=== PATIENT | female | born 1965 | race Caucasian/White ===

== ENCOUNTER 2017-11-08 16:37 | Emergency (ER) | payer MEDICARE, MEDICAID ==
[~2017-11-08] VITALS: Ht 162.6 cm; Wt 94.0 kg
[~2017-11-08 16:37] MED LIST: CETI-1 PO; DIAZ5TAB PO; HYDR-3964 PO; IBUP-1984 PO; LAMO200T2 PO; MECL25TA3 PO; NITR100C6 PO; ONDA8TAB13 PO; PHEN-887 PO; ZOLP5TAB8 PO
[2017-11-08 16:46] VITALS: BP 134/86
[2017-11-08] MEDS ORDERED: BENZ-16 PO (16:52)
[2017-11-08] MEDS ORDERED: AZIT250T PO (16:52)
== END 2017-11-08 16:58 | disposition home or self-care (01) ==
LOC: ER 16:38
DX: J06.9 Acute upper respiratory infection, unspecified (principal); K21.9 Gastro-esophageal reflux disease without esophagitis; G89.29 Other chronic pain; Z90.49 Acquired absence of other specified parts of digestive tract; Z88.8 Allergy status to other drugs, medicaments and biological substances; Z79.899 Other long term (current) drug therapy
CPT/HCPCS: 99283

== ENCOUNTER 2018-01-16 21:47 | Emergency (ER) | payer MEDICARE, MEDICAID ==
[~2018-01-16] VITALS: Ht 162.6 cm; Wt 94.6 kg
[~2018-01-16 21:47] MED LIST changes: +AZIT250T PO
[2018-01-17] MEDS ORDERED: triamcinolone acetonide 40mg/ml inj IM ONE (00:15)
[2018-01-17 00:25] VITALS: BP 123/65
== END 2018-01-17 00:27 | disposition home or self-care (01) ==
LOC: ER 21:48
DX: J30.2 Other seasonal allergic rhinitis (principal); K21.9 Gastro-esophageal reflux disease without esophagitis; G89.29 Other chronic pain; M19.90 Unspecified osteoarthritis, unspecified site; Z87.442 Personal history of urinary calculi; Z90.49 Acquired absence of other specified parts of digestive tract; Z90.710 Acquired absence of both cervix and uterus; Z88.8 Allergy status to other drugs, medicaments and biological substances; Z79.899 Other long term (current) drug therapy
CPT/HCPCS: 96372; 99283; J3301

== ENCOUNTER 2020-06-21 17:19 | Emergency (ER) | payer MEDICARE, MEDICAID ==
[~2020-06-21] VITALS: Ht 162.6 cm; Wt 99.5 kg
[2020-06-21 17:31] VITALS: BP 155/95
[2020-06-21] MEDS ORDERED: CEPH-572 PO (18:02)
[2020-06-21] MEDS ORDERED: LIDOcaine 1% 30ml preserv. free vial ONE (18:45)
[2020-06-21] MEDS ORDERED: cephalexin 250mg capsule PO ONE (18:45)
== END 2020-06-21 19:02 | disposition home or self-care (01) ==
LOC: ER 17:20
DX: L03.011 Cellulitis of right finger (principal); K21.9 Gastro-esophageal reflux disease without esophagitis; G89.29 Other chronic pain; F31.9 Bipolar disorder, unspecified; Z90.49 Acquired absence of other specified parts of digestive tract; Z90.710 Acquired absence of both cervix and uterus; Z98.890 Other specified postprocedural states; Z88.8 Allergy status to other drugs, medicaments and biological substances; Z79.2 Long term (current) use of antibiotics; Z79.899 Other long term (current) drug therapy
CPT/HCPCS: 11765; 99284; J2001; 99283

== ENCOUNTER 2022-02-25 15:58 | Emergency (ER) | payer MEDICARE, MEDICAID ==
[~2022-02-25] VITALS: Ht 162.6 cm; Wt 95.5 kg
[2022-02-25] MEDS ORDERED: ondansetron/PF 4mg/2ml inj IV ONE (16:15)
[2022-02-25] MEDS ORDERED: normal saline 1000ML IV soln IVB ONE (16:15)
[2022-02-25] MEDS ORDERED: morphine 4 MG/ML inj SYRINge IV ONE ×2 (16:15→18:10)
[2022-02-25 16:35] LABS: BASOPHILS % (AUTO) 0.2 % (0-1); EOSINOPHILS % (AUTO) 0 % (0-6); HEMATOCRIT 42.2 % (35.0-45.0); HEMOGLOBIN 14.5 g/dl (12.0-16.0); LYMPHOCYTES # (AUTO) 1.3 X10'3 (1.1-4.8); LYMPHOCYTES % (AUTO) 23.6 % (21-51); MEAN CORPUSCULAR HEMOGLOBIN 29.8 PG (27.0-31.0); MEAN CORPUSCULAR HGB CONC 34.4 g/dL (33.0-36.5); MEAN CORPUSCULAR VOLUME 86.8 FL (78-98); MONOCYTES # (AUTO) 0.4 X10'3 (0-0.9); NEUTROPHILS # (AUTO) 3.9 X10'3 (1.8-7.7); NEUTROPHILS % (AUTO) 69.2 % (42-75); PLATELET COUNT 200 X10'3 (140-440); RED BLOOD COUNT 4.86 X10'6 (4.20-5.60); RED CELL DISTRIBUTION WIDTH 13.2 % (11.5-14.5); WHITE BLOOD COUNT 5.7 X10'3 (4.5-11.0)
[2022-02-25 16:45] LABS: ALANINE AMINOTRANSFERASE 19 U/L (12-78); ALBUMIN/GLOBULIN RATIO 1.1 (1.1-1.5); ALKALINE PHOSPHATASE 92 IU/L (46-116); ANION GAP 9 (8-16); ASPARTATE AMINO TRANSFERASE 11 U/L (10-37); BILIRUBIN,TOTAL 0.4 MG/DL (0.1-1.0); BLOOD UREA NITROGEN 17 MG/DL (7-18); BUN/CREATININE RATIO 21.5 (6.6-38.0); CALCIUM 8.8 MG/DL (8.5-10.1); CHLORIDE 104 MMOL/L (99-107); CREATININE 0.79 MG/DL (0.40-0.90); GLUCOSE 99 MG/DL (70-104); LIPASE 171 U/L (73-393); POTASSIUM 3.7 MMOL/L (3.5-5.1); SODIUM 141 MMOL/L (135-145); TOTAL CARBON DIOXIDE 27.9 MMOL/L (24-32); TOTAL PROTEIN 7.7 G/DL (6.4-8.2); eGFR 76 ML/MIN
[2022-02-25 16:47] LABS: CLARITY,URINE CLEAR (Clear); COLOR,URINE YELLOW (Yellow); GLUCOSE, URINE NEGATIVE (Neg); KETONES,URINE TRACE mg/dl (Neg); LEUKOCYTE ESTERASE ,URINE NEGATIVE (Neg); NITRITES, URINE NEGATIVE (Neg); OCCULT BLOOD,URINE LARGE (Neg); PH,URINE 6.5 (4.8-8.0); PROTEIN,URINE NEGATIVE (Neg); UROBILINOGEN,URINE 0.2 E.U/dL (0.2-1.0)
[2022-02-25 16:56] LABS: UA COLLECTION TYPE CLN CATCH MIDSTREAM
[2022-02-25 16:59] LABS: BACTERIA,URINE FEW /HPF (Neg); MUCUS STRANDS FEW /LPF (Neg); RBC,URINE 20-50 /HPF (0-2); SQUAMOUS EPITHELIAL CELL,UR MODERATE /LPF (FEW); WBC,URINE 0-4 /HPF (0-4)
[2022-02-25] MEDS ORDERED: ketorolac tromethamine 15mg/ml inj. IV ONE (18:10)
[2022-02-25] MEDS ORDERED: FLO0.4C PO (19:13)
[2022-02-25] MEDS ORDERED: IBUP-1985 PO (19:13)
[2022-02-25 19:31] VITALS: BP 118/78
== END 2022-02-25 19:34 | disposition home or self-care (01) ==
LOC: ER 15:58
DX: N20.1 Calculus of ureter (principal); R10.84 Generalized abdominal pain; R11.2 Nausea with vomiting, unspecified; K21.9 Gastro-esophageal reflux disease without esophagitis; G89.29 Other chronic pain; F31.9 Bipolar disorder, unspecified; Z87.440 Personal history of urinary (tract) infections; Z87.442 Personal history of urinary calculi; Z90.49 Acquired absence of other specified parts of digestive tract; Z90.710 Acquired absence of both cervix and uterus; Z98.51 Tubal ligation status; Z98.890 Other specified postprocedural states; Z88.8 Allergy status to other drugs, medicaments and biological substances; Z79.2 Long term (current) use of antibiotics; Z79.899 Other long term (current) drug therapy
CPT/HCPCS: 36415; 74176; 80053; 81001; 83690; 85025; 96374; 96375; 96376; 99284; J1885; J2270; J2405; J7030

== ENCOUNTER 2022-06-25 09:04 | Emergency (ER) | payer MEDICARE, MEDICAID ==
[~2022-06-25] VITALS: Ht 162.6 cm; Wt 95.0 kg
[~2022-06-25 09:04] MED LIST changes: +IBUP-1985 PO
[2022-06-25 09:10] VITALS: BP 160/85
== END 2022-06-25 09:41 | disposition left against medical advice (07) ==
LOC: ER 09:05
DX: R05.9 Cough, unspecified (principal); K21.9 Gastro-esophageal reflux disease without esophagitis; G89.29 Other chronic pain; Z88.8 Allergy status to other drugs, medicaments and biological substances; Z90.49 Acquired absence of other specified parts of digestive tract; Z90.710 Acquired absence of both cervix and uterus; Z98.51 Tubal ligation status
CPT/HCPCS: 99281

== ENCOUNTER 2022-07-26 00:21 | Emergency (ER) | payer MEDICARE, MEDICAID ==
[~2022-07-26] VITALS: Ht 162.6 cm; Wt 100.0 kg
[2022-07-26] MEDS ORDERED: acetaminophen 325mg tablet PO STA (02:02)
[2022-07-26] MEDS ORDERED: ibuprofen tablet 400 MG TABLET PO ONE (02:05)
[2022-07-26 03:02] LABS: CLARITY,URINE SLIGHTLY CLOUDY (Clear); COLOR,URINE YELLOW (Yellow); GLUCOSE, URINE NEGATIVE (Neg); KETONES,URINE TRACE mg/dl (Neg); LEUKOCYTE ESTERASE ,URINE NEGATIVE (Neg); NITRITES, URINE NEGATIVE (Neg); OCCULT BLOOD,URINE NEGATIVE (Neg); PH,URINE 5.5 (4.8-8.0); PROTEIN,URINE TRACE mg/dl (Neg); UROBILINOGEN,URINE 0.2 E.U/dL (0.2-1.0)
[2022-07-26 03:06] LABS: BASOPHILS % (AUTO) 0.2 % (0-1); EOSINOPHILS % (AUTO) 0 % (0-6); HEMATOCRIT 41.3 % (35.0-45.0); HEMOGLOBIN 14.5 g/dl (12.0-16.0); LYMPHOCYTES % (AUTO) 21.7 % (21-51); MEAN CORPUSCULAR HEMOGLOBIN 31.6 PG (27.0-31.0); MEAN CORPUSCULAR VOLUME 90.2 FL (78-98); MONOCYTES # (AUTO) 0.6 X10'3 (0-0.9); MONOCYTES % (AUTO) 12.2 % (2-12); NEUTROPHILS # (AUTO) 3.1 X10'3 (1.8-7.7); NEUTROPHILS % (AUTO) 65.9 % (42-75); PLATELET COUNT 169 X10'3 (140-440); RED BLOOD COUNT 4.58 X10'6 (4.20-5.60); RED CELL DISTRIBUTION WIDTH 13.4 % (11.5-14.5); WHITE BLOOD COUNT 4.7 X10'3 (4.5-11.0)
[2022-07-26 03:15] LABS: UA COLLECTION TYPE CLN CATCH MIDSTREAM
[2022-07-26 03:19] LABS: ALANINE AMINOTRANSFERASE 34 U/L (12-78); ALBUMIN 4.1 G/DL (3.4-5.0); ALBUMIN/GLOBULIN RATIO 1.1 (1.1-1.5); ALKALINE PHOSPHATASE 87 IU/L (46-116); ANION GAP 10 (8-16); ASPARTATE AMINO TRANSFERASE 27 U/L (10-37); BILIRUBIN,TOTAL 0.5 MG/DL (0.1-1.0); BLOOD UREA NITROGEN 15 MG/DL (7-18); BUN/CREATININE RATIO 18.3 (6.6-38.0); CALCIUM 9.1 MG/DL (8.5-10.1); CHLORIDE 100 MMOL/L (99-107); CREATININE 0.82 MG/DL (0.40-0.90); GLUCOSE 120 MG/DL (70-104); POTASSIUM 3.9 MMOL/L (3.5-5.1); SODIUM 135 MMOL/L (135-145); TOTAL PROTEIN 7.8 G/DL (6.4-8.2); eGFR 72 ML/MIN
[2022-07-26 03:20] LABS: BACTERIA,URINE 1+ /HPF (Neg); MUCUS STRANDS MODERATE /LPF (Neg); SQUAMOUS EPITHELIAL CELL,UR MANY /LPF (FEW)
[2022-07-26 03:21] LABS: WBC,URINE 0-4 /HPF (0-4)
[2022-07-26 04:27] VITALS: BP 130/85
== END 2022-07-26 04:00 | disposition home or self-care (01) ==
LOC: ER 00:21
DX: J10.1 Influenza due to other identified influenza virus with other respiratory manifestations (principal); Z20.822 Contact with and (suspected) exposure to COVID-19; R11.2 Nausea with vomiting, unspecified; K21.9 Gastro-esophageal reflux disease without esophagitis; G89.29 Other chronic pain; M19.90 Unspecified osteoarthritis, unspecified site; Z88.8 Allergy status to other drugs, medicaments and biological substances; Z90.49 Acquired absence of other specified parts of digestive tract; Z90.710 Acquired absence of both cervix and uterus; Z98.51 Tubal ligation status
CPT/HCPCS: 36415; 71045; 80053; 81001; 85025; 86635; 87040; 87502; 87503; 87635; 99284; C9803

== ENCOUNTER 2022-07-29 16:34 | Emergency (ER) | payer MEDICARE, MEDICAID ==
[~2022-07-29] VITALS: Ht 162.6 cm; Wt 97.0 kg
[2022-07-29] MEDS ORDERED: levoFLOXACIN-Levaquin 500mg/D5 100 ML IV ONE (23:10)
[2022-07-29] MEDS ORDERED: LEVO-65 PO (23:11)
[2022-07-30 00:17] VITALS: BP 146/95
== END 2022-07-30 00:18 | disposition home or self-care (01) ==
LOC: ER 16:35
DX: R05.9 Cough, unspecified (principal); K21.9 Gastro-esophageal reflux disease without esophagitis; M19.90 Unspecified osteoarthritis, unspecified site; Z88.8 Allergy status to other drugs, medicaments and biological substances; Z90.49 Acquired absence of other specified parts of digestive tract; Z90.710 Acquired absence of both cervix and uterus; Z98.51 Tubal ligation status
CPT/HCPCS: 96365; 99284; J1956

== ENCOUNTER 2022-12-14 09:56 | Emergency (ER) | payer MEDICARE, MEDICAID ==
[~2022-12-14] VITALS: Ht 162.6 cm; Wt 97.0 kg
[2022-12-14] MEDS ORDERED: tamsulosin 0.4mg capsule PO STA (10:36)
[2022-12-14 10:40] LABS: BASOPHILS % (AUTO) 0.1 % (0-1); EOSINOPHILS % (AUTO) 0.1 % (0-6); HEMATOCRIT 41.3 % (35.0-45.0); HEMOGLOBIN 14.4 g/dl (12.0-16.0); LYMPHOCYTES # (AUTO) 1.2 X10'3 (1.1-4.8); LYMPHOCYTES % (AUTO) 26.1 % (21-51); MEAN CORPUSCULAR HEMOGLOBIN 31.1 PG (27.0-31.0); MEAN CORPUSCULAR VOLUME 89.1 FL (78-98); MEAN PLATELET VOLUME 9.5 FL (7.4-10.4); MONOCYTES # (AUTO) 0.4 X10'3 (0-0.9); MONOCYTES % (AUTO) 7.8 % (2-12); NEUTROPHILS % (AUTO) 65.9 % (42-75); PLATELET COUNT 195 X10'3 (140-440); RED BLOOD COUNT 4.64 X10'6 (4.20-5.60); RED CELL DISTRIBUTION WIDTH 12.8 % (11.5-14.5); WHITE BLOOD COUNT 4.6 X10'3 (4.5-11.0)
[2022-12-14] MEDS ORDERED: normal saline 1000ML IV soln IVB ONE (10:40)
[2022-12-14] MEDS ORDERED: ketorolac trometh. 30mg/ml inj. IV ONE (10:40)
[2022-12-14 10:41] LABS: CLARITY,URINE CLOUDY (Clear); COLOR,URINE YELLOW (Yellow); GLUCOSE, URINE NEGATIVE (Neg); KETONES,URINE NEGATIVE (Neg); LEUKOCYTE ESTERASE ,URINE NEGATIVE (Neg); NITRITES, URINE NEGATIVE (Neg); OCCULT BLOOD,URINE TRACE-INTACT (Neg); PH,URINE 5.5 (4.8-8.0); PROTEIN,URINE NEGATIVE (Neg); UROBILINOGEN,URINE 0.2 E.U/dL (0.2-1.0)
[2022-12-14 10:42] LABS: UA COLLECTION TYPE CLN CATCH MIDSTREAM; URINE HCG NEGATIVE (NEG)
[2022-12-14 10:52] LABS: MUCUS STRANDS MANY /LPF (Neg); SQUAMOUS EPITHELIAL CELL,UR MANY /LPF (FEW)
[2022-12-14 10:53] LABS: BACTERIA,URINE 2+ /HPF (Neg); RBC,URINE 0-2 /HPF (0-2); TRANSITIONAL EPI CELLS,URINE FEW /HPF; WBC,URINE 0-4 /HPF (0-4)
[2022-12-14 10:54] LABS: ALANINE AMINOTRANSFERASE 23 U/L (12-78); ALBUMIN 3.8 G/DL (3.4-5.0); ALBUMIN/GLOBULIN RATIO 1.1 (1.1-1.5); ALKALINE PHOSPHATASE 85 IU/L (46-116); ANION GAP 6 (8-16); ASPARTATE AMINO TRANSFERASE 17 U/L (10-37); BILIRUBIN,TOTAL 0.6 MG/DL (0.1-1.0); BLOOD UREA NITROGEN 20 MG/DL (7-18); BUN/CREATININE RATIO 27.4 (10.0-20.0); CHLORIDE 101 MMOL/L (99-107); CREATININE 0.73 MG/DL (0.40-0.90); GLUCOSE 132 MG/DL (70-104); LIPASE 89 U/L (73-393); POTASSIUM 4.1 MMOL/L (3.5-5.1); SODIUM 136 MMOL/L (135-145); TOTAL CARBON DIOXIDE 28.8 MMOL/L (24-32); TOTAL PROTEIN 7.3 G/DL (6.4-8.2); eGFR 83 ML/MIN
[2022-12-14 11:12] LABS: CALCIUM 9.4 MG/DL (8.5-10.1)
[2022-12-14 12:29] VITALS: BP 119/72
== END 2022-12-14 13:36 | disposition home or self-care (01) ==
LOC: ER 09:56
DX: N23 Unspecified renal colic (principal); F31.9 Bipolar disorder, unspecified; K21.9 Gastro-esophageal reflux disease without esophagitis; G89.29 Other chronic pain; M54.9 Dorsalgia, unspecified; F17.200 Nicotine dependence, unspecified, uncomplicated; Z90.49 Acquired absence of other specified parts of digestive tract; Z88.8 Allergy status to other drugs, medicaments and biological substances; Z79.899 Other long term (current) drug therapy; Z79.1 Long term (current) use of non-steroidal anti-inflammatories (NSAID); Z79.2 Long term (current) use of antibiotics
CPT/HCPCS: 36415; 74176; 80053; 81001; 81025; 83690; 85025; 96374; 99285; J1885; J7030

== ENCOUNTER 2023-04-07 14:43 | Emergency (ER) | payer MEDICARE, MEDICAID ==
[~2023-04-07] VITALS: Ht 165.1 cm; Wt 99.4 kg
[2023-04-07 14:59] VITALS: BP 143/89; PULSE 74; RESP 16; TEMP 98.1; O2SAT 98
[2023-04-07 15:40] LABS: CLARITY,URINE CLOUDY (Clear); COLOR,URINE YELLOW (Yellow); GLUCOSE, URINE NEGATIVE (Neg); KETONES,URINE NEGATIVE (Neg); LEUKOCYTE ESTERASE ,URINE NEGATIVE (Neg); NITRITES, URINE POSITIVE (Neg); OCCULT BLOOD,URINE TRACE-INTACT (Neg); PH,URINE 5.5 (4.8-8.0); PROTEIN,URINE NEGATIVE (Neg)
[2023-04-07 15:47] LABS: UA COLLECTION TYPE CLN CATCH MIDSTREAM
[2023-04-07 15:48] LABS: SQUAMOUS EPITHELIAL CELL,UR MODERATE /LPF (FEW)
[2023-04-07 15:49] LABS: BACTERIA,URINE 3+ /HPF (Neg); MUCUS STRANDS FEW /LPF (Neg); RBC,URINE 0-2 /HPF (0-2)
[2023-04-07] MEDS ORDERED: AMOX-117 PO (15:50)
== END 2023-04-07 16:07 | disposition home or self-care (01) ==
LOC: ER 14:44
DX: N39.0 Urinary tract infection, site not specified (principal); K21.9 Gastro-esophageal reflux disease without esophagitis; F31.9 Bipolar disorder, unspecified; Z88.8 Allergy status to other drugs, medicaments and biological substances; Z91.09 Other allergy status, other than to drugs and biological substances; Z79.2 Long term (current) use of antibiotics; Z79.899 Other long term (current) drug therapy; Z90.49 Acquired absence of other specified parts of digestive tract; Z90.710 Acquired absence of both cervix and uterus
CPT/HCPCS: 81001; 87077; 87088; 87186; 99283

== ENCOUNTER 2023-08-29 15:43 | Emergency (ER) | payer MEDICARE, MEDICAID ==
[~2023-08-29] VITALS: Ht 162.6 cm; Wt 100.2 kg
[2023-08-29 16:31] LABS: BILIRUBIN,URINE SMALL (Neg); CLARITY,URINE CLOUDY (Clear); COLOR,URINE BROWN (Yellow); GLUCOSE, URINE NEGATIVE (Neg); KETONES,URINE TRACE mg/dl (Neg); LEUKOCYTE ESTERASE ,URINE NEGATIVE (Neg); NITRITES, URINE POSITIVE (Neg); OCCULT BLOOD,URINE LARGE (Neg); PH,URINE 5.5 (4.8-8.0); PROTEIN,URINE 100 mg/dl (Neg)
[2023-08-29 16:51] LABS: UA COLLECTION TYPE CLN CATCH MIDSTREAM
[2023-08-29 16:56] LABS: RBC,URINE TNTC /HPF (0-2)
[2023-08-29 17:01] LABS: BACTERIA,URINE 4+ /HPF (Neg)
[2023-08-29 17:06] LABS: MUCUS STRANDS FEW /LPF (Neg)
[2023-08-29 17:08] LABS: WBC,URINE 30-50 /HPF (0-4)
[2023-08-29 17:10] LABS: TRANSITIONAL EPI CELLS,URINE FEW /HPF
[2023-08-29 17:16] LABS: SQUAMOUS EPITHELIAL CELL,UR MANY /LPF (FEW)
[2023-08-29 18:59] VITALS: TEMP 98
[2023-08-29] MEDS ORDERED: ondansetron/PF 4mg/2ml inj IV ONE (19:10)
[2023-08-29] MEDS ORDERED: ketorolac trometh. 30mg/ml inj. IV ONE (19:10)
[2023-08-29] MEDS ORDERED: morphine 4 MG/ML inj SYRINge IV ONE (19:10)
[2023-08-29] MEDS ORDERED: normal saline 1000ML IV soln IVB ONE (19:10)
[2023-08-29 19:31] LABS: BASOPHILS % (AUTO) 0.2 % (0-1); EOSINOPHILS % (AUTO) 0 % (0-6); HEMATOCRIT 42.6 % (35.0-45.0); HEMOGLOBIN 14.8 g/dl (12.0-16.0); LYMPHOCYTES # (AUTO) 1.2 X10'3 (1.1-4.8); MEAN CORPUSCULAR HEMOGLOBIN 30.8 PG (27.0-31.0); MEAN CORPUSCULAR HGB CONC 34.8 g/dL (33.0-36.5); MEAN CORPUSCULAR VOLUME 88.3 FL (78-98); MEAN PLATELET VOLUME 9.3 FL (7.4-10.4); MONOCYTES # (AUTO) 0.5 X10'3 (0-0.9); MONOCYTES % (AUTO) 6.9 % (2-12); NEUTROPHILS # (AUTO) 5.1 X10'3 (1.8-7.7); NEUTROPHILS % (AUTO) 74.9 % (42-75); PLATELET COUNT 202 X10'3 (140-440); RED BLOOD COUNT 4.82 X10'6 (4.20-5.60); RED CELL DISTRIBUTION WIDTH 13.5 % (11.5-14.5); WHITE BLOOD COUNT 6.8 X10'3 (4.5-11.0)
[2023-08-29 19:32] LABS: URINE HCG NEGATIVE (NEG)
[2023-08-29 19:39] LABS: ALANINE AMINOTRANSFERASE 28 U/L (12-78); ALBUMIN/GLOBULIN RATIO 1.1 (1.1-1.5); ALKALINE PHOSPHATASE 102 IU/L (46-116); ANION GAP 8 (8-16); ASPARTATE AMINO TRANSFERASE 14 U/L (10-37); BILIRUBIN,TOTAL 0.6 MG/DL (0.1-1.0); BLOOD UREA NITROGEN 14 MG/DL (7-18); BUN/CREATININE RATIO 19.4 (10.0-20.0); CALCIUM 9.2 MG/DL (8.5-10.1); CHLORIDE 97 MMOL/L (99-107); CREATININE 0.72 MG/DL (0.40-0.90); GLUCOSE 132 MG/DL (70-104); SODIUM 132 MMOL/L (135-145); TOTAL CARBON DIOXIDE 27.5 MMOL/L (24-32); TOTAL PROTEIN 7.8 G/DL (6.4-8.2); eCRCL 75 ML/MIN; eGFR 84 ML/MIN
[2023-08-29] MEDS ORDERED: CefTRIAXone/D5W-Rocephin 1gm 50 ML IV ONE (20:40)
[2023-08-29] MEDS ORDERED: FLO0.4C PO (21:06)
[2023-08-29] MEDS ORDERED: CEPH-585 PO (21:06)
[2023-08-29 21:30] VITALS: BP 164/79; PULSE 67; RESP 15; O2SAT 99
== END 2023-08-29 21:46 | disposition home or self-care (01) ==
LOC: ER 15:44
DX: N13.2 Hydronephrosis with renal and ureteral calculous obstruction (principal); N39.0 Urinary tract infection, site not specified; R31.9 Hematuria, unspecified; G89.29 Other chronic pain; Z87.442 Personal history of urinary calculi; Z87.440 Personal history of urinary (tract) infections; Z90.710 Acquired absence of both cervix and uterus; Z90.49 Acquired absence of other specified parts of digestive tract; Z98.51 Tubal ligation status; Z79.899 Other long term (current) drug therapy; Z79.2 Long term (current) use of antibiotics; Z88.8 Allergy status to other drugs, medicaments and biological substances
CPT/HCPCS: 36415; 74176; 80053; 81001; 81025; 85025; 96365; 96375; 99285; J0696; J1885; J2270; J2405; J7030

== ENCOUNTER 2023-09-13 20:10 | Emergency (ER) | payer MEDICARE, MEDICAID ==
[~2023-09-13] VITALS: Ht 162.6 cm; Wt 100.0 kg
[2023-09-13 20:30] VITALS: TEMP 98.7
[2023-09-13] MEDS ORDERED: ondansetron 4mg rapidly disintigrating tab PO ONE (20:40)
[2023-09-13] MEDS ORDERED: ketorolac trometh inj. 60 MG/2 ML VIAL IM ONE (20:40)
[2023-09-13 21:04] LABS: BASOPHILS % (AUTO) 0.2 % (0-1); EOSINOPHILS % (AUTO) 0 % (0-6); HEMATOCRIT 41.8 % (35.0-45.0); HEMOGLOBIN 14.8 g/dl (12.0-16.0); LYMPHOCYTES # (AUTO) 1.4 X10'3 (1.1-4.8); MEAN CORPUSCULAR HEMOGLOBIN 30.9 PG (27.0-31.0); MEAN CORPUSCULAR HGB CONC 35.4 g/dL (33.0-36.5); MEAN CORPUSCULAR VOLUME 87.4 FL (78-98); MEAN PLATELET VOLUME 8.9 FL (7.4-10.4); MONOCYTES # (AUTO) 0.4 X10'3 (0-0.9); MONOCYTES % (AUTO) 8.2 % (2-12); NEUTROPHILS # (AUTO) 3.1 X10'3 (1.8-7.7); NEUTROPHILS % (AUTO) 62.6 % (42-75); PLATELET COUNT 215 X10'3 (140-440); RED BLOOD COUNT 4.78 X10'6 (4.20-5.60); RED CELL DISTRIBUTION WIDTH 13.2 % (11.5-14.5)
[2023-09-13 21:06] LABS: URINE HCG NEGATIVE (NEG)
[2023-09-13 21:09] LABS: BILIRUBIN,URINE NEGATIVE (Neg); CLARITY,URINE SLIGHTLY CLOUDY (Clear); COLOR,URINE YELLOW (Yellow); GLUCOSE, URINE >=1000 mg/dl (Neg); KETONES,URINE TRACE mg/dl (Neg); LEUKOCYTE ESTERASE ,URINE NEGATIVE (Neg); NITRITES, URINE NEGATIVE (Neg); OCCULT BLOOD,URINE TRACE-INTACT (Neg); PROTEIN,URINE NEGATIVE (Neg); UROBILINOGEN,URINE 0.2 E.U/dL (0.2-1.0)
[2023-09-13 21:12] LABS: UA COLLECTION TYPE CLN CATCH MIDSTREAM
[2023-09-13 21:13] LABS: ALANINE AMINOTRANSFERASE 26 U/L (12-78); ALBUMIN 3.9 G/DL (3.4-5.0); ALKALINE PHOSPHATASE 95 IU/L (46-116); ANION GAP 8 (8-16); ASPARTATE AMINO TRANSFERASE 16 U/L (10-37); BILIRUBIN,TOTAL 0.5 MG/DL (0.1-1.0); BLOOD UREA NITROGEN 13 MG/DL (7-18); BUN/CREATININE RATIO 16.5 (10.0-20.0); CALCIUM 9.6 MG/DL (8.5-10.1); CHLORIDE 99 MMOL/L (99-107); CREATININE 0.79 MG/DL (0.40-0.90); GLUCOSE 166 MG/DL (70-104); LIPASE 55 U/L (16-77); SODIUM 135 MMOL/L (135-145); TOTAL CARBON DIOXIDE 28.2 MMOL/L (24-32); TOTAL PROTEIN 7.7 G/DL (6.4-8.2); eCRCL 69 ML/MIN; eGFR 75 ML/MIN
[2023-09-13 21:23] LABS: SQUAMOUS EPITHELIAL CELL,UR MANY /LPF (FEW)
[2023-09-13 21:24] LABS: MUCUS STRANDS MODERATE /LPF (Neg); WBC,URINE 0-4 /HPF (0-4)
[2023-09-13 21:25] LABS: BACTERIA,URINE 2+ /HPF (Neg)
[2023-09-14] MEDS ORDERED: FLUC150T22 PO (01:52)
[2023-09-14] MEDS ORDERED: FLO0.4C PO (01:52)
[2023-09-14 02:17] VITALS: BP 152/91; PULSE 85; RESP 18; O2SAT 98
== END 2023-09-14 02:18 | disposition home or self-care (01) ==
LOC: ER 20:10
DX: N20.0 Calculus of kidney (principal); B37.89 Other sites of candidiasis; K21.9 Gastro-esophageal reflux disease without esophagitis; G89.29 Other chronic pain; M54.9 Dorsalgia, unspecified; F31.9 Bipolar disorder, unspecified; Z88.8 Allergy status to other drugs, medicaments and biological substances; Z79.899 Other long term (current) drug therapy
CPT/HCPCS: 36415; 80053; 81001; 81025; 83690; 85025; 96372; 99283; J1885

== ENCOUNTER 2023-12-25 13:04 | Day surgery (SDC) | payer OTHER, MEDICAID ==
[2023-12-25] VITALS (8 sets, daily range): BP systolic 97–138; BP diastolic 36–88; PULSE 64–71; RESP 14–16; TEMP 97.9; O2SAT 94–97
[~2023-12-25] VITALS: Ht 162.6 cm; Wt 94.2 kg
[~2023-12-25 13:04] MED LIST changes: +ALBU2.5V7 NEB; +ASPI81TA53 PO; +ATOR40TA14 PO; -AZIT250T PO; -CETI-1 PO; +ESOM40CA PO; +FLUO20CA39 PO; -IBUP-1984 PO; +LINA5TAB4 PO; +LOSA50TA64 PO; +METF-1203 PO; +METO-395 PO; +MONT-40 PO; -NITR100C6 PO; +ROPI0.2544 PO; -ZOLP5TAB8 PO
[2023-12-25] MEDS ORDERED: diphenhydrAMINE 25mg capsule PO PRN (13:35)
[2023-12-25] MEDS ORDERED: LORazepam 0.5 MG tablet PO PRN (13:35)
[2023-12-25] MEDS ORDERED: normal saline 1,000 ML IV SCH (13:35)
[2023-12-25] MEDS ORDERED: iohexol 350MG/ML 100ml bottle IV ONE (13:56)
[2023-12-25] MEDS ORDERED: fentaNYL/PF 50MCG/1 ML 2ML syringe ONE (13:56)
[2023-12-25] MEDS ORDERED: verapamil 2.5 mg/ml inj IV ONE (13:56)
[2023-12-25] MEDS ORDERED: LIDOcaine 1% 30ml preserv. free vial ONE (13:56)
[2023-12-25] MEDS ORDERED: heparin 1,000unit/ml 10ml vial 10 ML ONE (13:56)
[2023-12-25] MEDS ORDERED: midazolam 1 mg/ML 2ml injection ONE (13:56)
[2023-12-25] MEDS ORDERED: nitroGLYCERIN 500mcg/5mL D5W 5 ML IV ONE (13:56)
[2023-12-25] MEDS ORDERED: LOSA-416 PO (13:57)
[2023-12-25] MEDS ORDERED: METF-436 PO (13:57)
[2023-12-25] MEDS ORDERED: METO-539 PO (13:57)
[2023-12-25] MEDS ORDERED: KETO-97 EACHEYE (13:57)
[2023-12-25] MEDS ORDERED: ZOLP5TAB2 PO (13:57)
[2023-12-25] MEDS ORDERED: FLO0.4C PO (13:57)
[2023-12-25] MEDS ORDERED: CETI10TA14 PO (13:57)
[2023-12-25] MEDS ORDERED: HYDR-3968 PO (13:57)
[2023-12-25] MEDS ORDERED: IBUP-1986 PO (13:57)
[2023-12-25] MEDS ORDERED: ATOR40TA14 PO (13:57)
[2023-12-25] MEDS ORDERED: CINN500C16 PO (13:57)
[2023-12-25] MEDS ORDERED: SEMA0.258 SQ (13:57)
[2023-12-25 14:06] LABS: BASOPHILS % (AUTO) 0.1 % (0-1); EOSINOPHILS % (AUTO) 0 % (0-6); HEMATOCRIT 40.4 % (35.0-45.0); HEMOGLOBIN 13.9 g/dl (12.0-16.0); LYMPHOCYTES # (AUTO) 1.3 X10'3 (1.1-4.8); LYMPHOCYTES % (AUTO) 19.4 % (21-51); MEAN CORPUSCULAR HEMOGLOBIN 30.7 PG (27.0-31.0); MEAN CORPUSCULAR HGB CONC 34.5 g/dL (33.0-36.5); MEAN CORPUSCULAR VOLUME 89.1 FL (78-98); MEAN PLATELET VOLUME 10.6 FL (7.4-10.4); MONOCYTES # (AUTO) 0.5 X10'3 (0-0.9); MONOCYTES % (AUTO) 7.6 % (2-12); NEUTROPHILS # (AUTO) 4.9 X10'3 (1.8-7.7); NEUTROPHILS % (AUTO) 72.9 % (42-75); PLATELET COUNT 178 X10'3 (140-440); RED BLOOD COUNT 4.53 X10'6 (4.20-5.60); RED CELL DISTRIBUTION WIDTH 13.3 % (11.5-14.5); WHITE BLOOD COUNT 6.8 X10'3 (4.5-11.0)
[2023-12-25 14:17] LABS: ANION GAP 10 (8-16); BLOOD UREA NITROGEN 19 MG/DL (7-18); BUN/CREATININE RATIO 27.9 (10.0-20.0); CALCIUM 9.6 MG/DL (8.5-10.1); CHLORIDE 102 MMOL/L (99-107); CREATININE 0.68 MG/DL (0.40-0.90); GLUCOSE 126 MG/DL (70-104); POTASSIUM 4.1 MMOL/L (3.5-5.1); SODIUM 138 MMOL/L (135-145); eCRCL 80 ML/MIN; eGFR 90 ML/MIN
[2023-12-25 14:38] LABS: APTT 32 SECONDS (22-32)
[2023-12-25] MEDS ORDERED: HYDROcodone/acetaminophen 10/325mg tab PO PRN (15:05)
[2023-12-25] MEDS ORDERED: HYDROcodone/acetaminophen 5mg/325mg tablet PO PRN (15:05)
== END 2023-12-25 16:50 | disposition home or self-care (01) ==
LOC: SSTAY O 13:04
PROVIDERS: ATTEND Student in an Organized Health Care Education/Training Program
DX: R07.9 Chest pain, unspecified (principal); I10 Essential (primary) hypertension; E11.9 Type 2 diabetes mellitus without complications; E78.00 Pure hypercholesterolemia, unspecified; J45.909 Unspecified asthma, uncomplicated; K21.9 Gastro-esophageal reflux disease without esophagitis; G47.00 Insomnia, unspecified; F41.9 Anxiety disorder, unspecified; F31.9 Bipolar disorder, unspecified; I25.2 Old myocardial infarction; G40.909 Epilepsy, unspecified, not intractable, without status epilepticus; M19.90 Unspecified osteoarthritis, unspecified site; Z79.84 Long term (current) use of oral hypoglycemic drugs; Z79.82 Long term (current) use of aspirin; Z79.891 Long term (current) use of opiate analgesic; Z79.899 Other long term (current) drug therapy; Z88.8 Allergy status to other drugs, medicaments and biological substances
CPT/HCPCS: 36415; 80048; 82948; 85025; 85610; 85730; 93005; 93458; J1644; J2250; J3010; J3490; J7030; Q9967; 99152; A6258; A6402; C1894

== ENCOUNTER 2024-01-08 18:55 | Emergency (ER) | payer OTHER, MEDICAID ==
[~2024-01-08] VITALS: Ht 162.6 cm; Wt 92.0 kg
[~2024-01-08 18:55] MED LIST changes: -ALBU2.5V7 NEB; -ASPI81TA53 PO; +CETI10TA14 PO; +CINN500C16 PO; -DIAZ5TAB PO; +FLO0.4C PO; -FLUO20CA39 PO; -HYDR-3964 PO; +HYDR-3968 PO; -IBUP-1985 PO; +IBUP-1986 PO; +KETO-97 EACHEYE; -LINA5TAB4 PO; +LOSA-416 PO; -LOSA50TA64 PO; -MECL25TA3 PO; -METF-1203 PO; +METF-436 PO; -METO-395 PO; +METO-539 PO; -ONDA8TAB13 PO; -PHEN-887 PO; +SEMA0.258 SQ; +ZOLP5TAB2 PO
[2024-01-08 19:04] VITALS: BP 100/72; PULSE 102; TEMP 99; O2SAT 97
[2024-01-08 20:44] VITALS: RESP 18
[2024-01-08] MEDS: ondansetron/PF 4mg/2ml inj IV ONE (20:44)
[2024-01-08] MEDS: normal saline 1000ml 1,000 ML IV ONE (20:44)
[2024-01-08] MEDS: ketorolac tromethamine 15mg/ml inj. IV ONE (20:44)
[2024-01-08 20:50] LABS: BILIRUBIN,URINE SMALL (Neg); CLARITY,URINE CLOUDY (Clear); COLOR,URINE YELLOW (Yellow); GLUCOSE, URINE NEGATIVE (Neg); KETONES,URINE 40 mg/dl (Neg); LEUKOCYTE ESTERASE ,URINE MODERATE (Neg); NITRITES, URINE NEGATIVE (Neg); OCCULT BLOOD,URINE SMALL (Neg); PROTEIN,URINE 100 mg/dl (Neg)
[2024-01-08 20:56] LABS: UA COLLECTION TYPE CLN CATCH MIDSTREAM
[2024-01-08 21:04] LABS: BASOPHILS % (AUTO) 0.1 % (0-1); EOSINOPHILS % (AUTO) 0 % (0-6); HEMATOCRIT 37.9 % (35.0-45.0); HEMOGLOBIN 13.2 g/dl (12.0-16.0); LYMPHOCYTES # (AUTO) 0.6 X10'3 (1.1-4.8); LYMPHOCYTES % (AUTO) 7.6 % (21-51); MEAN CORPUSCULAR HEMOGLOBIN 31.3 PG (27.0-31.0); MEAN CORPUSCULAR HGB CONC 34.7 g/dL (33.0-36.5); MEAN CORPUSCULAR VOLUME 90.1 FL (78-98); MEAN PLATELET VOLUME 10.3 FL (7.4-10.4); MONOCYTES # (AUTO) 0.9 X10'3 (0-0.9); MONOCYTES % (AUTO) 10.4 % (2-12); NEUTROPHILS # (AUTO) 6.9 X10'3 (1.8-7.7); NEUTROPHILS % (AUTO) 81.9 % (42-75); PLATELET COUNT 134 X10'3 (140-440); RED BLOOD COUNT 4.21 X10'6 (4.20-5.60); RED CELL DISTRIBUTION WIDTH 13.5 % (11.5-14.5); WHITE BLOOD COUNT 8.4 X10'3 (4.5-11.0)
[2024-01-08 21:11] LABS: WBC,URINE TNTC /HPF (0-4)
[2024-01-08 21:12] LABS: BACTERIA,URINE 4+ /HPF (Neg); SQUAMOUS EPITHELIAL CELL,UR MODERATE /LPF (FEW)
[2024-01-08 21:13] LABS: MUCUS STRANDS MODERATE /LPF (Neg); TRANSITIONAL EPI CELLS,URINE FEW /HPF
[2024-01-08 21:14] LABS: RBC,URINE 0-2 /HPF (0-2); WBC CLUMPS,URINE MODERATE /HPF (NEGATIVE)
[2024-01-08 21:31] LABS: ALANINE AMINOTRANSFERASE 16 U/L (12-78); ALBUMIN 3.5 G/DL (3.4-5.0); ALBUMIN/GLOBULIN RATIO 0.9 (1.1-1.5); ALKALINE PHOSPHATASE 81 IU/L (46-116); ANION GAP 8 (8-16); ASPARTATE AMINO TRANSFERASE 8 U/L (10-37); BILIRUBIN,TOTAL 1.9 MG/DL (0.1-1.0); BLOOD UREA NITROGEN 19 MG/DL (7-18); BUN/CREATININE RATIO 22.4 (10.0-20.0); CALCIUM 8.7 MG/DL (8.5-10.1); CHLORIDE 98 MMOL/L (99-107); CREATININE 0.85 MG/DL (0.40-0.90); GLUCOSE 153 MG/DL (70-104); LIPASE 25 U/L (16-77); POTASSIUM 3.9 MMOL/L (3.5-5.1); SODIUM 131 MMOL/L (135-145); TOTAL CARBON DIOXIDE 24.6 MMOL/L (24-32); TOTAL PROTEIN 7.2 G/DL (6.4-8.2); eCRCL 64 ML/MIN; eGFR 69 ML/MIN
[2024-01-08] MEDS: CefTRIAXone 2gm/D5W 50ml BAG 50 ML IV ONE (21:38)
[2024-01-08] MEDS ORDERED: ONDA8TAB13 PO (21:54)
[2024-01-08] MEDS ORDERED: CEPH-585 PO (21:54)
== END 2024-01-08 22:18 | disposition home or self-care (01) ==
LOC: ER 18:56
DX: N39.0 Urinary tract infection, site not specified (principal); R11.2 Nausea with vomiting, unspecified; R19.7 Diarrhea, unspecified; I10 Essential (primary) hypertension; K21.9 Gastro-esophageal reflux disease without esophagitis; Z91.041 Radiographic dye allergy status; Z91.09 Other allergy status, other than to drugs and biological substances; Z79.899 Other long term (current) drug therapy; Z79.1 Long term (current) use of non-steroidal anti-inflammatories (NSAID); Z90.49 Acquired absence of other specified parts of digestive tract; Z90.710 Acquired absence of both cervix and uterus
CPT/HCPCS: 36415; 80053; 81001; 83690; 85025; 87088; 87186; 96361; 96365; 96375; 99284; J0696; J1885; J2405; J7030; 87077

== ENCOUNTER 2024-11-14 18:02 | Emergency (ER) | payer OTHER, MEDICAID ==
[~2024-11-14] VITALS: Ht 162.6 cm; Wt 86.4 kg
[~2024-11-14 18:02] MED LIST changes: +ONDA-245 PO
[2024-11-14 19:13] VITALS: BP 130/78; PULSE 80; O2SAT 98
[2024-11-14] MEDS ORDERED: BENZ-38 PO (20:14)
[2024-11-14] MEDS ORDERED: METH4TAB81 PO (20:14)
[2024-11-14] MEDS ORDERED: AZIT-164 PO (20:14)
[2024-11-14] MEDS ORDERED: ZOLP5TAB8 PO (20:14)
[2024-11-14 20:40] VITALS: RESP 16; TEMP 98.4
== END 2024-11-14 20:27 | disposition home or self-care (01) ==
LOC: ER 18:02
DX: J20.9 Acute bronchitis, unspecified (principal); K21.9 Gastro-esophageal reflux disease without esophagitis; I10 Essential (primary) hypertension; M19.90 Unspecified osteoarthritis, unspecified site; F31.9 Bipolar disorder, unspecified; G47.00 Insomnia, unspecified; F17.200 Nicotine dependence, unspecified, uncomplicated; Z88.8 Allergy status to other drugs, medicaments and biological substances; Z90.49 Acquired absence of other specified parts of digestive tract; Z90.710 Acquired absence of both cervix and uterus; Z87.440 Personal history of urinary (tract) infections; Z87.442 Personal history of urinary calculi; Z98.51 Tubal ligation status
CPT/HCPCS: 71045; 87502; 87503; 99284

== ENCOUNTER 2024-12-03 10:46 | Emergency (ER) | payer OTHER, MEDICAID ==
[~2024-12-03] VITALS: Ht 162.6 cm; Wt 85.9 kg
[~2024-12-03 10:46] MED LIST changes: +AZIT-164 PO; +METH4TAB81 PO
[2024-12-03 10:48] VITALS: TEMP 96
[2024-12-03] MEDS: dexamethasone sod phosphate 10mg/ml inj IM STA (12:37)
[2024-12-03] MEDS: ketorolac trometh 30MG/ML vial 30 MG/ML VIAL IM ONE (12:37)
[2024-12-03] MEDS ORDERED: PRED20TA PO (12:43)
[2024-12-03] MEDS ORDERED: ACET1TAB96 PO (12:43)
[2024-12-03] MEDS ORDERED: PROM25TA14 PO (12:43)
[2024-12-03] MEDS ORDERED: ALBU8HFA INH (12:43)
[2024-12-03] MEDS: ipratropium/albuterol 3ml nebule NEB STA (12:51)
[2024-12-03 12:53] VITALS: PULSE 74; RESP 16; O2SAT 96
[2024-12-03 13:01] VITALS: PULSE 84; RESP 14; O2SAT 99
[2024-12-03 13:13] VITALS: BP 112/63; PULSE 84; RESP 18; O2SAT 96
== END 2024-12-03 13:15 | disposition home or self-care (01) ==
LOC: ER 10:47
DX: J22 Unspecified acute lower respiratory infection (principal); J20.9 Acute bronchitis, unspecified; I10 Essential (primary) hypertension; K21.9 Gastro-esophageal reflux disease without esophagitis; M19.90 Unspecified osteoarthritis, unspecified site; Z87.440 Personal history of urinary (tract) infections; Z88.8 Allergy status to other drugs, medicaments and biological substances; Z90.49 Acquired absence of other specified parts of digestive tract; Z90.710 Acquired absence of both cervix and uterus; Z98.51 Tubal ligation status; Z79.84 Long term (current) use of oral hypoglycemic drugs; Z79.1 Long term (current) use of non-steroidal anti-inflammatories (NSAID)
CPT/HCPCS: 71045; 94640; 96372; 99284; J1100; J1885; 94760

== ENCOUNTER 2024-12-30 13:51 | Emergency (ER) | payer OTHER, MEDICAID ==
[~2024-12-30] VITALS: Ht 162.6 cm; Wt 81.6 kg
[~2024-12-30 13:51] MED LIST changes: +ALBU8HFA INH; -AZIT-164 PO; -FLO0.4C PO; +TAMS-55 PO
[2024-12-30 13:54] VITALS: BP 128/79; PULSE 80; RESP 16; O2SAT 100
[2024-12-30] MEDS ORDERED: CIPR7.5D7 LEFT EAR (16:23)
[2024-12-30 16:32] VITALS: TEMP 97.8
== END 2024-12-30 16:33 | disposition home or self-care (01) ==
LOC: ER 13:52
DX: H60.92 Unspecified otitis externa, left ear (principal); I10 Essential (primary) hypertension; Z88.8 Allergy status to other drugs, medicaments and biological substances; Z87.440 Personal history of urinary (tract) infections; Z90.49 Acquired absence of other specified parts of digestive tract; Z90.710 Acquired absence of both cervix and uterus
CPT/HCPCS: 69209; 99283